=== PATIENT | female | born 1940 | race American Indian/Alaskan Native ===

== ENCOUNTER 2017-01-30 10:00 | Observation (INO) | payer MEDICARE ==
[~2017-01-30] VITALS: Ht 154.9 cm; Wt 46.0 kg
--- NOTE | ~2017-01-30 | DS ---
PATIENT'S NAME: HAILEY SHIPLEY [facility] AGE: 76 Y [address] ROOM: [address] [address] LOCATION: [facility] ADMIT DATE: 02/04/2017 Discharge Summary DISCHARGE DATE: 02/06/2017 FAMILY PHYSICIAN: Eliane Penny MD ATTENDING PHYSICIAN: Karl Owens DATE OF SURGERY: 02/04/2017. FINAL DIAGNOSES: Pelvic prolapse, stress urinary incontinence, uterine procidentia, cystourethrocele, rectocele, intrauterine Lippes Loop. Procedures performed on 02/04/2017, total vaginal hysterectomy, bilateral salpingo-oophorectomy, anterior-posterior colporrhaphy, sacrospinous ligament vaginal vault suspension and placement of a tension-free vaginal tape. REASON FOR HOSPITALIZATION: Hailey Shipley is a 76-year-old female with uterine procidentia, grade 3 cystourethrocele, and grade 3 rectocele. She has stress urinary incontinence. She states the symptoms are adversely affecting her activities of daily living, desires to undergo definitive surgical correction. Please see H and P for specifics regarding physical examination. HOSPITAL COURSE: The patient is admitted to [facility] on 02/04/2017, whereupon she was taken to the operating room. She would undergo a total vaginal hysterectomy, bilateral salpingo-oophorectomy, anterior- posterior colporrhaphy, placement of sacrospinous ligament suspension, and placement of transvaginal tape. The patient tolerated the procedure well, had an unremarkable postoperative course. Pain was initially managed with morphine [employer]INER, later changed over oral pain medications consisting of Motrin and Percocet. Coats was discontinued on postoperative day #1, but did need to be replaced on 02/06/2017 (postoperative day #2). The patient was having normal urine and bowel function and ambulated well with good pain control and subsequently discharged in good condition. DISCHARGE MEDICATIONS: She is to resume her preoperative pain medicine and in addition she is given a prescription for Motrin and Percocet. She is to return in 2 weeks for postoperative check. Please see discharge instruction sheet for specifics regarding instructions. KARL OWENS MD DHW/modl PATIENT'S NAME: HAILEY SHIPLEY [facility] AGE: 76 Y [address] ROOM: [place] [address] LOCATION: [facility] ADMIT DATE: 02/04/2017 Discharge Summary DISCHARGE DATE: 02/06/2017 FAMILY PHYSICIAN: Eliane Penny MD ATTENDING PHYSICIAN: Karl Owens /[id number] d: 02/18/17 1414 t: 02/28/17 0739, DISCHARGE SUMMARY
--- NOTE | ~2017-01-30 | OR ---
PATIENT'S NAME: HAILEY SHIPLEY [facility] AGE: 76 Y [address] ROOM: [place] [address] LOCATION: [facility] ADMIT DATE: 02/04/2017 OR/Procedure Report DISCHARGE DATE: FAMILY PHYSICIAN: Eliane Penny MD ATTENDING PHYSICIAN: Karl Owens SURGEON: Karl Owens MD RIGGING LOFT MECHANIC: No assistants. DATE OF PROCEDURE: 02/04/2017 PREOPERATIVE DIAGNOSES: 1. Pelvic relaxation, stress urinary incontinence. 2. Uterine procidentia. 3. Cystourethrocele. 4. Rectocele. POSTOPERATIVE DIAGNOSIS: 1. Pelvic relaxation, stress urinary incontinence. 2. Uterine procidentia. 3. Cystourethrocele. 4. Rectocele. PROCEDURE: 1. Total vaginal hysterectomy. 2. Bilateral salpingo-oophorectomy. 3. Anterior-posterior colporrhaphy. 4. Sacrospinous ligament vaginal vault suspension and placement of a tension- free transvaginal tape (by Dr. Schultz). ANESTHESIA: General endotracheal anesthesia. ESTIMATED BLOOD LOSS: 150 mL. CLINICAL INDICATION: Hailey Shipley is a 76-year-old female with complete uterine procidentia and stress urinary incontinence. She understood the indications, procedures, risks, and alternatives. FINDINGS: Uterine procidentia, grade 3 cystourethrocele, grade 3 rectocele. Uterus with an intrauterine Lippy's loop, tubes and ovaries normal bilaterally. DESCRIPTION OF PROCEDURE: The patient was taken the operating room, given general endotracheal anesthesia with good results, placed in a lithotomy position, prepped and draped in usual fashion. Uterus was entirely outside of the vagina. The cervix was grasped with thyroid-Lisset clamps. The mucosa at the cervical vaginal reflection was injected with lidocaine with epinephrine. PATIENT'S NAME: HAILEY SHIPLEY [facility] AGE: 76 Y [address] ROOM: [place] [address] LOCATION: [facility] ADMIT DATE: 02/04/2017 OR/Procedure Report DISCHARGE DATE: FAMILY PHYSICIAN: Eliane Penny MD ATTENDING PHYSICIAN: Karl Owens The mucosa was incised with a scalpel. Submucosa dissected bluntly and posterior colpotomy incision was performed first. A finger was then brought anterior to identify the bladder and the anterior colpotomy incision was then performed. Retractors placed through these incisions. The LigaSure was used to secure the uterosacral cardinal and broad ligament pedicles bilaterally. The uterus was delivered posteriorly. Curved bladder clamp was placed about the infundibulopelvic pedicles and they were released with the LigaSure. Uterus is removed from the operative field, anchored stitches of 0 Vicryl suture placed about each pedicle, each fallopian tube and ovary was then brought to the midline. Curved bladder clamp was placed lateral to the tubes and ovaries i.e. and BSO was performed. The pedicles were released with the LigaSure and secured using anchored stitches of 0 Vicryl suture. The lateral vaginal angles were secured using single interrupted stitches of 0 Vicryl suture. Abdominal peritoneum was closed with a running continuous pursestring stitch of 2-0 Vicryl suture. The vaginal cuff was closed with running continually locking stitch of 0 Vicryl suture. We then turned our attention to the anterior colporrhaphy. The vaginal mucosa was injected with lidocaine with epinephrine. The mucosa was then undermined and incised vertically in the midline with Metzenbaum scissors. Submucosa dissected using a combination of sharp and blunt dissection. We then stepped aside. Dr. Schultz placed the transvaginal tape. Please see his dictation for specifics. Lateral aspects of the endopelvic fascia were then reapproximated using a running continuous stitch of 0 Vicryl suture in horizontal mattress. The lateral aspects of the endopelvic fascia were then reapproximated using a series of horizontal mattress stitches of 0 Vicryl suture in two layers. Redundant vaginal mucosa was excised with Lennon scissors. The mucosa was then reapproximated using a running continually locking stitch of 2-0 Vicryl suture. We then turned our attention to the posterior colporrhaphy. The vaginal mucosa was injected using lidocaine with epinephrine. The perineum was incised with a scalpel. The submucosa was undermined and then incised vertically in the midline with Metzenbaum scissors. Submucosa dissected using a combination of sharp and blunt dissection. Each sacrospinous ligament was identified and a stitch of 0 [place]-Marcus was placed through the belly of the each ligament and secured to the medial aspects of the vaginal cuff. The endopelvic fascia was reapproximated using a running continuous stitch of 0 Vicryl suture. The redundant vaginal mucosa was excised using a running continually locking stitch of 2-0 Vicryl suture. All vaginal instruments were retrieved. Coats and vaginal pack inserted. The patient tolerated procedure well, was taken to the recovery room in good condition. KARL OWENS MD PATIENT'S NAME: HAILEY SHIPLEY [facility] AGE: 76 Y [address] ROOM: [place] [address] LOCATION: [facility] ADMIT DATE: 02/04/2017 OR/Procedure Report DISCHARGE DATE: FAMILY PHYSICIAN: Eliane Penny MD ATTENDING PHYSICIAN: Karl Owens DHW/modl /[id number] CC: Eliane Penny MD d: 02/04/17 1753 t: 02/18/17 0751, OPERATIVE SUMMARY
--- NOTE | ~2017-01-30 | OR ---
PATIENT'S NAME: HAILEY SHIPLEY [facility] AGE: 76 Y [address] ROOM: [place] [address] LOCATION: [facility] ADMIT DATE: 02/04/2017 OR/Procedure Report DISCHARGE DATE: FAMILY PHYSICIAN: Eliane Penny MD ATTENDING PHYSICIAN: Angelito Owens SURGEON: Chance Schultz MD SPUN PASTE MACHINE OPERATOR: Angelito Owens MD DATE OF PROCEDURE: 02/04/2017 PREOPERATIVE DIAGNOSES: 1. Stress urinary incontinence. 2. Cystocele. POSTOPERATIVE DIAGNOSES: 1. Stress urinary incontinence. 2. Cystocele. PROCEDURE PERFORMED: Mid urethral suspension. ANESTHESIA: General. INDICATION FOR PROCEDURE: The patient is a 76-year-old female with significant bladder prolapse and stress urinary incontinence. DETAILS OF PROCEDURE: After Dr. Owens completed his hysterectomy, he opened the anterior vaginal wall and developed a space into the endopelvic fascia. Two small skin incisions were made over the pubic bone bilaterally. The TVT needle was then passed through the abdominal incision, through the endopelvic fascia, and out the anterior vaginal wall bilaterally. Cystoscopy was performed which revealed the needles had not penetrated the bladder wall bilaterally. The Coats catheter was replaced and the tape was attached to the ends of each needle and pulled through. Heavy curved scissors were used as a spacing device. The sheath was cut and removed, locking the tape in position. The excess was excised at the abdominal wall. The patient tolerated this part of the procedure well, and at this point, Dr. Owens continued on with his part of the operation. MD WAQAS OSPINA/jessica PATIENT'S NAME: HAILEY SHIPLEY [facility] AGE: 76 Y [address] ROOM: [place] [address] LOCATION: [facility] ADMIT DATE: 02/04/2017 OR/Procedure Report DISCHARGE DATE: FAMILY PHYSICIAN: Eliane Penny MD ATTENDING PHYSICIAN: Angelito Owens /[id number] CC: Eliane Penny MD d: 02/04/17 1425 t: 02/13/17 1158, OPERATIVE SUMMARY
[2017-01-30] MEDS ORDERED: GLUCOPHAGE500 MG PO (10:07)
[2017-01-30] MEDS ORDERED: PRINIVIL (ZESTRI5 MG PO (10:08)
[2017-01-30] MEDS ORDERED: ZOCOR20 MG PO (10:09)
[2017-01-30] MEDS ORDERED: NAMENDA XR28 MG PO (10:10)
[2017-01-30] MEDS ORDERED: CYMBALTA30 MG PO (10:10)
[2017-01-30] MEDS ORDERED: SINGULAIR10 MG PO (10:11)
[2017-01-30] MEDS ORDERED: VITAMIN B-121000 MCG PO (10:12)
[2017-01-30] MEDS ORDERED: VITAMIN D1000 UNIT PO (10:12)
[2017-01-30] MEDS ORDERED: SYNTHROID25 MCG PO (10:13)
[2017-02-04 07:50] LABS: EOSINOPHIL # 0.1 K/uL (0.0-0.5); EOSINOPHIL % 1.7 %; HEMATOCRIT 38.4 % (33.0-46.0); IMMATURE GRANULOCYTE % 0.2 %; LYMPHOCYTE % 23.2 %; MCH 32.1 pg (27.0-34.0); MCHC 33.9 gm/dL (32.0-36.5); MCV 94.8 fl (83.0-98.0); MONOCYTE # 0.4 K/uL (0.0-1.0); MONOCYTE % 8.6 %; MPV 10.1 fl (9.4-12.4); NEUTROPHIL # (ANC) 2.7 K/uL (1.8-7.8); NEUTROPHIL % 65.3 %; NRBC % 0 /100WBC (0-0.00); PLATELET COUNT 262 K/uL (150-450); RBC 4.05 M/uL (3.50-5.50); RDW-CV 13.4 % (11.9-14.6); WBC 4.1 K/uL (4.0-11.0)
--- NOTE | 2017-02-04 15:26 | NUR ---
Met with patient and spouse at bedside today. Introduced myself and explained my role with the CM department. Patient lives at home with her spouse. She is independent with her ADL's prior to this hospitalization. Her plan is to discharge to home with no additional needs. Patient did state she would like a milk shake from [employer] and her will go get that for her. I told them to wait and talk to her nurse first since patient is a diabetic and unsure if her diet has been advanced. I notified her nurse iLndsay and she will let them know if and when patient can have a milkshake. No other needs at this time. Will continue to offer supports.
[2017-02-05] MEDS ORDERED: MOTRIN800 MG PO (09:29)
[2017-02-05] MEDS ORDERED: PERCOCET 5-3251 EACH PO (09:29)
--- NOTE | 2017-02-05 17:01 | NUR ---
Received a message at 1620 stating patient wanted to speak to Care Management. I arrived on the floor at 1640 and spoke to patient and her nurse Donna. Patient's friend told patient about the [facility] and suggested she stay there for a few days after discharge that way she would be within the building if she had any needs. Nurse Donna asked me to come up and discuss with patient. I explained to patient and her significant other that this is not an option, the [facility] is not used for this type of support. Patient and significant other voiced their understanding. He states they live togther on a single story home/apartment and he is around all day to help take care of her. She is just concerned because she is having an increase in pain and has been unable to void. She will be staying tonight and will look at discharge possibly tomorrow depending on how she is doing.
--- NOTE | 2017-02-06 10:05 | NUR ---
02/06/17 1005: Bladder scan 259 ml residual.
--- NOTE | 2017-02-06 11:41 | NUR ---
02/06/17:1141 Bladder Scan: 0 residual.
== END 2017-02-06 14:30 | disposition disaster alternative care site (69) ==
LOC: GOBS 02-04 07:14 → GMSU 02-04 07:14 → GOBS 02-04 07:14
PROVIDERS: ADMIT Obstetrics & Gynecology
PROC: 0TSD0ZZ Reposition Urethra, Open Approach (ICD-10-PCS; principal; 2017-02-04)
PROC: 0UT97ZZ Resection of Uterus, Via Natural or Artificial Opening (ICD-10-PCS; 2017-02-04)
PROC: 0UTC7ZZ Resection of Cervix, Via Natural or Artificial Opening (ICD-10-PCS; 2017-02-04)
PROC: 0UT27ZZ Resection of Bilateral Ovaries, Via Natural or Artificial Opening (ICD-10-PCS; 2017-02-04)
PROC: 0UT77ZZ Resection of Bilateral Fallopian Tubes, Via Natural or Artificial Opening (ICD-10-PCS; 2017-02-04)
PROC: 0JQC0ZZ Repair Pelvic Region Subcutaneous Tissue and Fascia, Open Approach (ICD-10-PCS; 2017-02-04)
PROC: 0JQC0ZZ Repair Pelvic Region Subcutaneous Tissue and Fascia, Open Approach (ICD-10-PCS; 2017-02-04)
PROC: 0USG0ZZ Reposition Vagina, Open Approach (ICD-10-PCS; 2017-02-04)
DX: N81.3 Complete uterovaginal prolapse (principal); N39.3 Stress incontinence (female) (male); N81.6 Rectocele; N88.0 Leukoplakia of cervix uteri; I10 Essential (primary) hypertension; E11.9 Type 2 diabetes mellitus without complications; E78.5 Hyperlipidemia, unspecified; F32.9 Major depressive disorder, single episode, unspecified; M19.90 Unspecified osteoarthritis, unspecified site; Z79.899 Other long term (current) drug therapy; Z79.84 Long term (current) use of oral hypoglycemic drugs; Z90.49 Acquired absence of other specified parts of digestive tract; Z98.890 Other specified postprocedural states
CPT/HCPCS: C1771; G0378; J0690; J0694; J1100; J1885; J2001; J2250; J2270; J2405; J7030; J7040